=== PATIENT | female | born 1950 | race Caucasian/White ===

== ENCOUNTER 2022-11-17 09:18 | Day surgery (SDC) | payer OTHER, BC ==
[2022-11-12 14:58] VITALS: BMI 26.6
[2022-11-17] MEDS ORDERED: ONDANSETRON 4 MG/2 ML VIAL ONE (09:57)
[2022-11-17] MEDS ORDERED: NEO/POLYMYX B SULF/DEXAMETH OPHTHALMIC 5ML BOTTLE ONE (10:04)
[2022-11-17] MEDS ORDERED: CARBACHOL 0.01% INTRA-OCULAR 1.5 ML VIAL ONE (10:04)
[2022-11-17 10:10] VITALS: RESP 18
[2022-11-17] MEDS: TROPICAMIDE 1% OPHTH SOLN 15 ML BOTTLE ONE ×3 (10:10→10:20)
[2022-11-17] MEDS: CYCLOPENTOLATE 2% OPHTH SOLN 2 ML BOTTLE ONE ×3 (10:10→10:20)
[2022-11-17] MEDS: CIPROFLOXACIN 0.3% EYE DROPS 5 ML BOTTLE ONE ×3 (10:10→10:20)
[2022-11-17] MEDS: PHENYLEPHRINE 2.5% OPTHALMIC DROP 2ML BOTTLE ONE ×3 (10:10→10:20)
[2022-11-17] MEDS ORDERED: MIDAZOLAM HCL 2 MG/2 ML SINGLE DOSE VIAL ONE (10:58)
[2022-11-17 12:03] VITALS: PULSE 46; TEMP 97
[2022-11-17 12:23] VITALS: BP 122/60
== END 2022-11-17 12:36 | disposition home or self-care (01) ==
LOC: FASU 09:18
PROVIDERS: ATTEND Ophthalmology
PROC: 08RK3JZ Replacement of Left Lens with Synthetic Substitute, Percutaneous Approach (ICD-10-PCS; principal; 2022-11-17 11:32)
DX: H26.8 Other specified cataract (principal)
CPT/HCPCS: 66984; V2632